=== PATIENT | female | born 1945 | race Caucasian/White ===

== ENCOUNTER 2023-02-18 10:49 | Emergency (ER) | payer OTHER ==
[~2023-02-18] VITALS: Ht 157.5 cm; Wt 65.6 kg
[~2023-02-18 10:49] MED LIST: GLYB5TAB8; LOSA25TA15; METO-289; PANTOPRAZOLE; PSYL48.56; SIMV40TA18
[2023-02-18 11:14] LABS: Basophils # (auto) 0.1 10 ^3/uL (0-0.2); Eosinophils # (auto) 0.2 10 ^3/uL (0-0.8); Eosinophils % (auto) 3.3 % (0.0-7.0); Hematocrit 38.4 % (36.0-46.0); Hemoglobin 12.9 g/dL (12.2-16.2); Lymphocytes # (auto) 2.2 10 ^3/uL (0.4-5.4); Lymphocytes % (auto) 35.4 % (10.0-50.0); Mean Corpuscular Hgb Conc. 33.5 g/dL (32.0-36.0); Mean Corpuscular Volume 83.4 fL (80.0-100.0); Monocytes # (auto) 0.6 10 ^3/uL (0-1.3); Monocytes % (auto) 8.8 % (0.0-12.0); Neutrophils # (auto) 3.2 10 ^3/uL (1.6-8.6); Neutrophils % (auto) 51.5 % (37.0-80.0); Nucleated Red Blood Cells % 0.1 %; Red Blood Cells 4.61 10^6/uL (4.0-5.20); Red Cell Distribution Width 13.8 % (11.8-14.3); White Blood Cell 6.3 10^3/uL (4.4-10.8)
[2023-02-18 11:32] LABS: CRP High Sensitivity 0.07 mg/dL (< 0.3)
[2023-02-18 11:36] LABS: Lactic Acid w/Reflex 2.2 mmol/L (0.4-2.0)
[2023-02-18 12:09] LABS: Urine Bacteria FEW /hpf (None Seen); Urine Blood Negative /uL (Negative); Urine Specific Gravity 1.014 (1.001-1.035); Urine WBC 3 /hpf (0 - 5)
[2023-02-18] MEDS ORDERED: PANTOPRAZOLE 40 MG TAB PO ONE (12:30)
[2023-02-18] MEDS ORDERED: SODIUM CHLORIDE 0.9% 1,000 ML IV ONE (12:30)
[2023-02-18] MEDS ORDERED: LIDOCAINE VISCOUS 2% 15ML UD PO ONE (12:30)
[2023-02-18] MEDS ORDERED: MAALOX PLUS or MAALOX 30 ML PO ONE (12:30)
[2023-02-18 14:17] LABS: Albumin 3.9 g/dL (3.4-5.0); Calcium 9.8 mg/dL (8.5-10.1); Potassium 3.9 mmol/L (3.5-5.1)
[2023-02-18 14:21] LABS: BUN/Creatinine Ratio 10.9 (10.0-20.0); Bilirubin, Total 0.5 mg/dL (0.2-1.0); Total Protein 7.7 g/dL (6.4-8.2)
[2023-02-18] MEDS ORDERED: cefTRIAXone 1GM/50ML D5W 50 ML IV ONE (15:30)
[2023-02-18] MEDS ORDERED: LEVO750T8 PO (23:43)
[2023-02-19 00:13] VITALS: BP 162/74
== END 2023-02-19 00:18 | disposition home or self-care (01) ==
LOC: ER 10:49
DX: K29.70 Gastritis, unspecified, without bleeding (principal); N39.0 Urinary tract infection, site not specified; E11.9 Type 2 diabetes mellitus without complications; I10 Essential (primary) hypertension; Z90.89 Acquired absence of other organs; Z98.890 Other specified postprocedural states; Z79.899 Other long term (current) drug therapy
CPT/HCPCS: 36415; 74176; 80053; 81001; 83605; 83690; 84484; 85025; 86141; 87040; 87086; 96361; 96374; 99285; J0696; J7030

== ENCOUNTER 2024-04-30 16:44 | Emergency (ER) | payer OTHER ==
[~2024-04-30] VITALS: Ht 157.5 cm; Wt 63.8 kg
[~2024-04-30 16:44] MED LIST changes: +LEVO750T8 PO; +LOSA-533; -LOSA25TA15
[2024-04-30 17:00] VITALS: PULSE 78; RESP 17; O2SAT 100
[2024-04-30] MEDS: DEXTROSE (ORAL) 12.5g/31ml 0.4g/ml GEL PO ONE (17:00)
[2024-04-30 17:39] LABS: Basophils # (auto) 0 10 ^3/uL (0-0.2); Basophils % (auto) 0.6 % (0.0-2.0); Eosinophils # (auto) 0.1 10 ^3/uL (0-0.8); Eosinophils % (auto) 1.9 % (0.0-7.0); Hemoglobin 11.7 g/dL (12.2-16.2); Lymphocytes % (auto) 41.7 % (10.0-50.0); Mean Corpuscular Hemoglobin 28.2 pg (28.0-32.0); Mean Corpuscular Hgb Conc. 33.3 g/dL (32.0-36.0); Mean Corpuscular Volume 84.6 fL (80.0-100.0); Monocytes # (auto) 0.8 10 ^3/uL (0-1.3); Monocytes % (auto) 11.2 % (0.0-12.0); Neutrophils # (auto) 3.2 10 ^3/uL (1.6-8.6); Neutrophils % (auto) 44.6 % (37.0-80.0); Nucleated Red Blood Cells % 0.1 %; Platelet Count (auto) 256 10^3/uL (140-450); Red Blood Cells 4.13 10^6/uL (4.0-5.20); Red Cell Distribution Width 13.5 % (11.8-14.3); White Blood Cell 7.2 10^3/uL (4.4-10.8)
[2024-04-30] MEDS: ASPirin 81 mg TAB PO ONE (18:10)
[2024-04-30] MEDS: ASPirin 325 MG TAB PO ONE (18:23)
[2024-04-30 18:36] LABS: Alanine Aminotransferase 15 U/L (7-40); Albumin 4.3 g/dL (3.2-4.8); Alkaline Phosphatase 94 U/L (46-116); Anion Gap 7 (5-15); Aspartate Aminotransferase 17 U/L (13-40); BUN/Creatinine Ratio 11.4 (10.0-20.0); Blood Urea Nitrogen 17 mg/dL (9-23); Calcium 10.5 mg/dL (8.7-10.4); Carbon Dioxide 26 mmol/L (20-30); Chloride 98 mmol/L (98-107); Glucose 70 mg/dL (74-106); Potassium 3.7 mmol/L (3.5-5.1); Sodium 131 mmol/L (136-145)
[2024-04-30 18:37] LABS: Bilirubin, Total 0.4 mg/dL (0.2-1.0); Total Protein 7.1 g/dL (5.7-8.2)
[2024-04-30 19:47] LABS: Urine Bacteria FEW /hpf (None Seen); Urine Blood Negative /uL (Negative); Urine Clarity Clear (Clear); Urine Color Yellow (Yellow); Urine Protein, UAD Negative (Negative); Urine Specific Gravity 1.011 (1.001-1.035); Urine Urobilinogen Normal (Negative); Urine WBC 1 /hpf (0 - 5); Urine pH 5.5 (5.0-9.0)
[2024-04-30] MEDS: IOHEXOL 350 MG/ML 100ML IJ ONE (21:31)
[2024-04-30] MEDS ORDERED: ASPI81CH59 PO (23:47)
[2024-05-01] MEDS: SODIUM CHLORIDE 0.9% 1,000 ML IV ONE (00:32)
[2024-05-01] MEDS ORDERED: GLIP10TA9 PO (00:41)
[2024-05-01] MEDS ORDERED: METF-371 PO (00:41)
[2024-05-01] MEDS ORDERED: ATOR40TA52 PO (00:41)
[2024-05-01] MEDS ORDERED: FOLI-119 PO (00:41)
[2024-05-01] MEDS ORDERED: PIOG1TAB37 OR (00:41)
[2024-05-01] MEDS ORDERED: LOSA-535 PO (00:41)
[2024-05-01] MEDS ORDERED: AMLO1TAB22 PO (00:41)
[2024-05-01] MEDS ORDERED: PANT40TA2 PO (00:41)
[2024-05-01 02:00] VITALS: BP 147/61; PULSE 72; RESP 13; TEMP 98; O2SAT 92
== END 2024-05-01 02:07 | disposition home or self-care (01) ==
LOC: ER 16:44
DX: G45.9 Transient cerebral ischemic attack, unspecified (principal); I63.9 Cerebral infarction, unspecified; E11.9 Type 2 diabetes mellitus without complications; E78.5 Hyperlipidemia, unspecified; I10 Essential (primary) hypertension
CPT/HCPCS: 36415; 70450; 70496; 80053; 81001; 82962; 84484; 85025; 96360; 99285; J7030; Q9967; 93005